=== PATIENT | female | born 1970 | race Asian ===

== ENCOUNTER 2017-02-19 11:24 | Inpatient (IN) | payer OTHER ==
[2017-02-19 12:11] LABS: % IMMATURE GRANULYOCYTES 0.3 % (0.0-1.1); ABSOLUTE IMMATURE GRANULOCYTES 0.02 10^3/uL (0.00-0.10); ADD DIFF? NO; ADD MORPH? NO; ADD SCAN? NO; ATYPICAL LYMPHOCYTE FLAG 10 (0-99); FRAGMENT RBC FLAG 0 (0-99); HEMATOCRIT 42.7 % (38.0-47.0); HEMOGLOBIN 14.6 g/dL (12.6-16.3); LEFT SHIFT FLG 0 (0-99); LIPEMIA HEMOLYSIS FLAG 90 (0-99); MEAN CELL HEMOGLOBIN 29.6 pg (27.9-34.1); MEAN CELL HEMOGLOBIN CONCENTR. 34.2 g/dL (32.4-36.7); MEAN CELL VOLUME 86.4 fL (81.5-99.8); MEAN PLATELET VOLUME 11.1 fL (8.7-11.7); PLATELET CLUMPS FLAG 0 (0-99); PLATELET COUNT 181 10^3/uL (150-400); RED BLOOD CELL COUNT 4.94 10^6/uL (4.18-5.33); RED CELL DISTRIBUTION WIDTH 12.6 % (11.5-15.2)
[2017-02-19 12:20] LABS: INR 1.08 (0.83-1.16); PROTIME(PATIENT) 13.9 SEC (12.0-15.0)
[2017-02-19 12:29] LABS: ANION GAP 12 mEq/L (8-16); CALCIUM 9.2 mg/dL (8.5-10.4); CARBON DIOXIDE 21 mEq/l (22-31); CHLORIDE 109 mEq/L (97-110); CREATININE 0.7 mg/dL (0.6-1.0); GLOMERULAR FILTRATION RATE > 60; GLUCOSE 86 mg/dL (70-100); POTASSIUM 4.1 mEq/L (3.5-5.2); SODIUM 142 mEq/L (134-144)
[2017-02-19] MEDS ORDERED: IOPAMIDOL (ISOVUE-300) 100 ML BTL IV ONE ×2 (12:49→14:32)
[2017-02-19] MEDS ORDERED: HEPARIN 10,000 UNIT/10 ML MDV ONE (12:49)
[2017-02-19] MEDS ORDERED: MIDAZOLAM 2 MG/2 ML VIAL ONE (12:52)
[2017-02-19] MEDS ORDERED: REMIFENTANIL HCL 1 MG VIAL ONE (12:54)
[2017-02-19] MEDS ORDERED: fentaNYL 100 MCG/2 ML INJ ONE (12:54)
[2017-02-19] MEDS ORDERED: PROPOFOL 200 MG/20 ML VIAL ONE (12:54)
[2017-02-19] MEDS ORDERED: LIDOCAINE 2% 100 MG/5 ML SYR ONE (12:55)
[2017-02-19] MEDS ORDERED: ROCURONIUM 50 MG/5 ML VIAL ONE (12:55)
[2017-02-19] MEDS ORDERED: ROCURONIUM 100 MG/10 ML VIAL ONE (12:55)
[2017-02-19] MEDS ORDERED: ASPIRIN 325 MG TAB PO ONE (13:00)
[2017-02-19] MEDS ORDERED: MAG HYDROX/AL HYDROX/SIMETH 30 ML UDCUP PO PRN (16:00)
[2017-02-19] MEDS ORDERED: NS 1,000 ML IV SCH (16:00)
[2017-02-19] MEDS ORDERED: ONDANSETRON 4 MG/2 ML VIAL IVP PRN (16:00)
[2017-02-19] MEDS ORDERED: NS W/ 20 KCl/L 1,000 ML IV SCH (16:00)
[2017-02-19] MEDS ORDERED: MAGNESIUM HYDROXIDE 30 ML UDCUP PO PRN (16:00)
[2017-02-19] MEDS ORDERED: OXYCODONE/APAP 5/325 TAB PO PRN (16:00)
[2017-02-19] MEDS ORDERED: LACTULOSE 20 GM/30 ML UDCUP PO PRN (16:00)
[2017-02-19] MEDS ORDERED: POLYETHYLENE GLYCOL 3350 17 GM PKT PO PRN (16:00)
[2017-02-19] MEDS ORDERED: BISACODYL 10 MG SUPP PR PRN (16:00)
--- NOTE | 2017-02-19 16:07 | POSTOPPROG ---
Post Op Note Date of Operation: 02/19/17 Surgeon: Ifeanyi Guerrero [employer]ws Software Development Engineer: none Anesthesiologist: Edda Anesthesia: GET(General Endotracheal) Pre-op Diagnosis: left superior hypophyseal aneurysm Post-op Diagnosis: same Indication: left superior hypophyseal aneurysm Procedure: Pipeline embolization of left ICA aneurysm Findings: successful embolization Inf/Abcess present in the surg proc area at time of surgery?: No EBL: Minimal Complications: none Specimen(s): none
[2017-02-19] MEDS ORDERED: SENNOSIDES/DOCUSATE SODIUM TAB PO SCH (21:00)
[2017-02-19] MEDS: DEXAMETHASONE 2 MG TAB PO SCH (21:47)
[2017-02-20 01:06] VITALS: TEMP 98.7
[2017-02-20] MEDS: DEXAMETHASONE 2 MG TAB PO SCH (05:19)
[2017-02-20 08:12] VITALS: BP 120/70; PULSE 75; RESP 16; O2SAT 96
[2017-02-20] MEDS ORDERED: CLOPIDOGREL BISULFATE 75 MG TAB PO SCH (09:00)
[2017-02-20] MEDS ORDERED: ASPIRIN 325 MG TAB PO SCH (09:00)
--- NOTE | 2017-02-20 09:01 | NEUSURGPN ---
Assessment/Plan: 46 y/o female s/p Pipeline embolization of left ICA aneurysm -Continue Decadron taper -Continue Plavix and ASA -Okay to take down dressing and shower on Thursday. -Dispo planning -Discussed with Subjective: Denies any headache, nausea, dizziness. Objective: NAD A&O CN II-XII grossly intact. EOMI, PERRLA Groin soft Distal pulse (PT, DP, popliteal 2+) equal in BLE - Physician Discussed Patient with Dr.: Guerrero Neurosurgery Physical Exam - Vitals, I&O, Labs I and O 02/19/17 02/20/17 02/21/17 05:59 05:59 05:59 Intake Total 2390 Output Total 0 Balance 2390 Weight 48.53 kg Intake: Oral (ml) 740 IV Intake (ml) 1650 Output: Estimated Blood Loss (ml) 0 Other: Number of Voids Toilet 2 Vital Signs Temp Pulse Resp BP Pulse Ox 37.1 C 75 16 120/70 96 02/20/17 04:00 02/20/17 08:00 02/20/17 08:00 02/20/17 08:00 02/20/17 08:00 Laboratory Results 02/19/17 11:52 02/19/17 11:52 ICD10 Worksheet Patient Problems: Problems Problem Status Onset Cerebral aneurysm Acute - ICD10 Problem Qualifiers (1) Cerebral aneurysm
== END 2017-02-20 10:44 | disposition home or self-care (01) | DRG 27 ==
LOC: FIMAGING 11:24 → F2N 16:07
PROVIDERS: ADMIT Neurological Surgery; ATTEND Neurological Surgery
PROC: 03L Upper Arteries, Occlusion (ICD-10-PCS; principal; 2017-02-19)
DX: I67.1 Cerebral aneurysm, nonruptured (principal)
CPT/HCPCS: C1769; C1874; C1887; C1894; J1644; J2001; J2250; J2704; J3010; Q9967

== ENCOUNTER → 2017-05-14 | Outpatient (CLI) | payer OTHER ==
[~2017-05-14] MED LIST: GADOBUTROL 10 ML VIAL IVP ONE
== END ==
LOC: FIMAGING 15:11
PROVIDERS: ATTEND Radiology Diagnostic Radiology
DX: R29.818 Other symptoms and signs involving the nervous system (principal); Z95.828 Presence of other vascular implants and grafts
CPT/HCPCS: A9585

== ENCOUNTER → 2018-03-11 | Outpatient (CLI) | payer OTHER | LOC: FIMAGING 06:45 | PROVIDERS: ATTEND Physician Assistant | DX: I67.1 Cerebral aneurysm, nonruptured (principal); Z09 Encounter for follow-up examination after completed treatment for conditions other than malignant neoplasm | CPT/HCPCS: A9585 ==